=== PATIENT | male | born 1965 | race Caucasian/White ===

== ENCOUNTER 2022-01-19 21:59 | Emergency (ER) | payer BC, SELFPAY ==
--- NOTE | ~2022-01-19 | CT_ITS ---
EXAMINATION: CT abdomen pelvis w con INDICATION: Right lower quadrant pain TECHNIQUE: Computed tomographic images of the abdomen and pelvis were obtained after the administrati on of 100 cc of Omnipaque 350 intravenous contrast. The dose-length product (DLP) was 828.38 mGy-cm. Automated exposure control and iterative reconstruction technique were employed. COMPARISON: 04/20/2012 FINDINGS: Minimal dependent atelectasis is present in the lung bases. The heart size is normal. The l iver, spleen, pancreas, gallbladder, and adrenal glands are normal. Cysts of the right kidney measure up to 12 mm. The left kidney is unremarkable. No pathologically enlarged abdominal or pelvic lymph n odes are identified. There is no free intraperitoneal gas or evidence of bowel obstruction. The appen matt is normal. There is mild wall thickening in the gastric antrum. There is moderate osteoarthritis of the right hip. There are bilateral inguinal hernias containing fat. IMPRESSION: 1. Mild wall thickening of the gastric antrum which could reflect gastritis. Reviewed, dictated and finalized at location A.
[2022-01-19 22:13] VITALS: BP 203/121; PULSE 79; RESP 18; TEMP 36.5; O2SAT 98
[2022-01-19 22:32] LABS: Basophils Absolute Auto 0.1 K/mm3 (0.0-0.1); Basophils Percent Auto 0.5 % (0.2-1.2); Eosinophils Absolute Auto 0.3 K/mm3 (0-0.3); Eosinophils Percent Auto 2.8 % (0-4.4); Hematocrit 44.9 % (42.0-52.0); Immature Granulocyte Absolute 0.03 K/mm3 (0.00-0.031); Immature Granulocyte Percent A 0.3 % (0-0.5); Lymphocytes Absolute Auto 1.41 K/mm3 (0.9-3.2); Lymphocytes Percent Auto 15.2 % (18.3-44.2); Mean Corpuscular HGB Conc 33.4 g/dl (32-36); Mean Corpuscular Hemoglobin 28.7 pg (26-34); Monocytes Percent Auto 10.5 % (2.6-8.5); Neutrophils Absolute Auto 6.6 K/mm3 (1.3-6.7); Neutrophils Percent Auto 70.7 % (45.5-73.1); Platelet Count Result 231 k/mm3 (150-375); Red Blood Count 5.22 M/mm3 (4.6-6.20); Red Cell Distribution Width 12.3 % (11.5-14.5); White Blood Count 9.3 K/mm3 (4.5-10.0)
[2022-01-19 22:42] LABS: Alanine Aminotransferase 26 U/L (4-50); Albumin Level 4.5 g/dL (3.5-5.1); Alkaline Phosphatase 80 U/L (38-126); Anion Gap 10 mmol/L (8-16); Aspartate Amino Transferase 29 U/L (17-59); Bilirubin,Total 0.7 mg/dL (0.2-1.3); Blood Urea Nitrogen 11 mg/dL (9-20); Calcium 8.8 mg/dL (8.4-10.2); Carbon Dioxide 22 mmol/L (22-30); Chloride 105 mmol/L (98-107); Estimated CRCL calculation 93 ml/min; Estimated Glomerular Filt Rate > 60; Glucose 121 mg/dL (65-110); Lipase 43 U/L (23-300); Potassium 4.1 mmol/L (3.4-5.0); Sodium 137 mmol/L (137-145)
[2022-01-20] VITALS (10 sets, daily range): BP systolic 174; BP diastolic 98; PULSE 67; RESP 17; O2SAT 97–99
[2022-01-20] MEDS: SODIUM CHLORIDE 0.9% IV 1,000 ML 999 ML IV CONT (01:12)
[2022-01-20] MEDS: ONDANSETRON INJ 4 MG/2 ML VIAL IV PUSH (01:13)
--- NOTE | 2022-01-20 02:49 | ECG_ITS ---
Measurements Intervals [place] Rate: 63 P: 47 MI: 161 QRS: 10 QRSD: 100 T: 34 QT: 394 QTc: 404 Interpretive Statements SINUS RHYTHM NORMAL ECG NO PREVIOUS ECG AVAILABLE FOR COMPARISON Electronically Signed On 01-20-2022 16:48:24 CDT by Juarez Hernandez M.D.
--- NOTE | 2022-01-20 05:36 | ED.GENADULT ---
HPI - General Adult General Chief complaint: Headache Stated complaint: vomiting, sinus headache Time Seen by Provider: 01/20/22 00:30 History of Present Illness HPI narrative: Patient is a 56-year-old male who presents ER with multiple complaints. Main complaint is he is having abdominal cramping and bloating worsening over the last 2 days. He is having nausea and vomiting associated with this. He reports because of his vomiting has not been able to take his antihypertensives. Patient also reports tension headache that may be developing into known cluster headaches due to his inability to have any caffeine and keep down his medications. No fevers or chills or sweats. No known sick contacts. No thunderclap headache. No numbness or tingling arms or legs. No change in vision. Related Data Allergies Allergy/AdvReac Type Severity Reaction Status Date / Time codeine Allergy Mild Confusion Verified 01/19/22 22:16 Review of Systems Review of Systems: All systems reviewed & are unremarkable except as noted in HPI and below Constitutional: Constitutional: Denies chills, Denies fever(s) and Denies weakness ENT: Denies nasal congestion and Denies sore throat Cardiovascular: Cardiovascular: Denies chest pain, Denies rapid heart rate and Denies radiating jaw, neck or arm pain Respiratory: Respiratory: Denies cough, Denies dyspnea and Denies wheezing Gastrointestinal: Gastrointestinal: Reports abdominal pain, Denies diarrhea, Reports nausea and Reports vomiting Neurologic: Reports headache(s), Denies focal weakness and Denies numbness PMFSH Past Medical History Medical History (Updated 01/20/22 @ 07:42 by Alfredo Olivo MD) Cluster headaches Hypertension Surgical History Surgical History (Updated 01/20/22 @ 07:42 by Alfredo Olivo MD) History of tonsillectomy Exam Narrative: GENERAL: Well-appearing, well-nourished, and in no acute distress. HEAD: Normocephalic, atraumatic. EYES: PERRL and EOMI. ENT: Mucous membranes moist. CHEST: Clear to auscultation. No respiratory distress. HEART: Regular rate and rhythm. Normal peripheral pulses. ABDOMEN: Soft, tender palpation right lower quadrant with guarding, nondistended. EXTREMITIES: Normal range of motion. No edema. SKIN: Warm, dry, no rash. NEURO: Alert and oriented x3. PSYCH: Normal mood and affect. Course Course Emergency Course: Patient feels markedly improved with fluids, Zofran, and IV Tylenol. Informed of results. Discharge home. Vital Signs Vital signs: Vital Signs Temperature 97.7 F 01/19/22 22:13 Pulse Rate 79 01/19/22 22:13 Respiratory Rate 18 01/19/22 22:13 Blood Pressure 203/121 H 01/19/22 22:13 Pulse Oximetry 98 01/19/22 22:13 Temperature 97.7 F 01/19/22 22:13 Pulse Rate 67 01/20/22 05:50 Respiratory Rate 17 01/20/22 05:50 Blood Pressure 174/98 H 01/20/22 05:50 Pulse Oximetry 98 01/20/22 05:50 Medical Decision Making Vital Signs Vital Signs: Vital Signs Temperature 97.7 F 01/19/22 22:13 Pulse Rate 79 01/19/22 22:13 Respiratory Rate 18 01/19/22 22:13 Blood Pressure 203/121 H 01/19/22 22:13 Pulse Oximetry 98 01/19/22 22:13 Temperature 97.7 F 01/19/22 22:13 Pulse Rate 67 01/20/22 05:50 Respiratory Rate 17 01/20/22 05:50 Blood Pressure 174/98 H 01/20/22 05:50 Pulse Oximetry 98 01/20/22 05:50 Lab Data Result diagrams: 01/19/22 22:27 01/19/22 22:27 Labs: Lab Results 01/19/22 01/19/22 Range/Units 22:27 22:27 WBC 9.3 (4.5-10.0) K/mm3 RBC 5.22 (4.6-6.20) M/mm3 Hgb 15.0 (14.0-18.0) g/dL Hct 44.9 (42.0-52.0) % MCV 86.0 (80-100) fl MCH 28.7 (26-34) pg MCHC 33.4 (32-36) g/dl RDW 12.3 (11.5-14.5) % Plt Count 231 (150-375) k/mm3 MPV 9.0 (7.4-10.4) fl Immature Gran % (Auto) 0.3 (0-0.5) % Neut % (Auto) 70.7 (45.5-73.1) % Lymph % (Auto) 15.2 L (18.3-44.2) % [place] % (Auto) 10.5
== END 2022-01-20 05:52 | disposition home or self-care (01) ==
PROVIDERS: Emergency Provider Emergency Medicine; PCP Family Medicine Adolescent Medicine
DX: K52.9 Noninfective gastroenteritis and colitis, unspecified (principal); I10 Essential (primary) hypertension
CPT/HCPCS: 36415; 74177; 80053; 83690; 85025; 93005; 96365; 96375; 99284; J0131; J2405; J7030; Q9967

== ENCOUNTER 2023-06-16 05:53 | Emergency (ER) | payer BC, SELFPAY ==
[2023-06-16] VITALS (10 sets, daily range): BP systolic 183–201; BP diastolic 116–123; PULSE 86–96; RESP 20–27; TEMP 37.6; O2SAT 97–98
[2023-06-16 07:25] LABS: Influenza A QL RT-PCR Negative (Negative); Influenza B QL RT-PCR Negative (Negative); SARS-CoV-2 RNA PCR Positive (Negative)
[2023-06-16] MEDS: SODIUM CHLORIDE 0.9% IV 1,000 ML 999 ML IV CONT (07:59)
--- NOTE | 2023-06-16 08:19 | ED.GENADULT ---
HPI - General Adult General Chief complaint: Upper Respiratory Infection Stated complaint: SOB, cough, sore thorat, fever Time Seen by Provider: 06/16/23 07:02 History of Present Illness HPI narrative: Patient is a 58-year-old male who presents ER with sore throat and fever. Symptoms began yesterday. Associate with cough and mild dyspnea. No chest pain or chest pressure. No known sick contacts. Patient works with [employer] and has been exposed to heat throughout the week. Reports he is mildly constipated. No chest pain or chest pressure. No alleviating factors. Last COVID vaccination was 1 year ago. Related Data Allergies Allergy/AdvReac Type Severity Reaction Status Date / Time codeine Allergy Mild Confusion Verified 06/13/22 15:50 lisinopril AdvReac Unknown Hives Verified 06/13/22 15:50 Review of Systems Constitutional: Constitutional: Reports chills, Reports fatigue and Reports fever(s) ENT: Reports nasal congestion and Reports sore throat Cardiovascular: Cardiovascular: Denies chest pain, Denies rapid heart rate and Denies radiating jaw, neck or arm pain Respiratory: Respiratory: Reports cough, Reports dyspnea and Denies wheezing Gastrointestinal: Gastrointestinal: Denies abdominal pain, Reports constipation, Denies nausea and Denies vomiting PMFSH Past Medical History Medical History (Updated 06/16/23 @ 08:35 by Alfredo Olivo MD) Cluster headaches Hypertension Surgical History Surgical History (Updated 01/20/22 @ 07:42 by Alfredo Olivo MD) History of tonsillectomy Family History Family History (Updated 06/13/22 @ 16:41 by Lauren Bobby, EVERARDO) Other Carcinoma of colon Heart disease Hypertension Melanoma Social History Social History Smoking status: Unknown if ever smoked Exam Narrative: GENERAL: Fatigued-appearing, well-nourished, and in no acute distress. HEAD: Normocephalic, atraumatic. EYES: PERRL and EOMI. ENT: Mucous membranes moist. Mild pharyngeal erythema. Normal uvula that is midline and nonedematous. No tonsillar hypertrophy/exudate. CHEST: Clear to auscultation. No respiratory distress. HEART: Regular rate and rhythm. Normal peripheral pulses. ABDOMEN: Soft, nontender, nondistended. NEURO: Alert and oriented x3. PSYCH: Normal mood and affect. Course Vital Signs Vital signs: Vital Signs Temperature 99.6 F 06/16/23 05:58 Pulse Rate 95 06/16/23 05:58 Respiratory Rate 22 H 06/16/23 05:58 Blood Pressure 201/119 H 06/16/23 05:58 Pulse Oximetry 98 06/16/23 05:58 Oxygen Delivery Room Air 06/16/23 05:58 Temperature 99.6 F 06/16/23 05:58 Pulse Rate 96 06/16/23 06:46 Respiratory Rate 22 H 06/16/23 06:46 Blood Pressure 191/119 H 06/16/23 06:46 Pulse Oximetry 98 06/16/23 05:58 Oxygen Delivery Room Air 06/16/23 05:58 Medical Decision Making MDM Narrative Medical decision making narrative: -Presentation: 58-year-old male presents the ER with sore throat and nasal congestion. -DDX includes but is not limited to: COVID, flu, other viral infection. -Co-morbidities complicating care: Hypertension -Social determinants of health: Employed as a steelworker. -External Chart Review: None -Hx from independent Sources: Patient -Independent interpretation of studies: Patient COVID-positive. Patient with elevated blood pressures. -Discussion of Management/Consultants: none -Dx tests considered but not ordered: none -Procedures: none -Interventions: none -Shared decision making / Disposition: Patient has history of hypertension and has not been taking his Bystolic. Patient given some fluids due to reports of feeling dehydrated and heat exposure. -RX:Paxlovid. Vital Signs Vital Signs: Vital Signs Temperature 99.6 F 06/16/23 05:58 Pulse Rate 95 06/16/23 05:58 Respiratory Rate 22 H 06/16/23 05:58 Blood Pressure 201/119 H 06/16/23 05:58 Pulse Oximetry 98 06/16/23 05:58 O
== END 2023-06-16 08:55 | disposition home or self-care (01) ==
PROVIDERS: Emergency Medicine; Emergency Provider Emergency Medicine; PCP Family Medicine Adolescent Medicine
DX: U07.1 COVID-19 (principal); I10 Essential (primary) hypertension
CPT/HCPCS: 87636; 96360; 99283; J7030

== ENCOUNTER 2024-07-30 11:55 | Emergency (ER) | payer BC, SELFPAY ==
--- NOTE | ~2024-07-30 | XR_ITS ---
XR chest 1V portable Ordering provider: Augustin Maurice MD History: 59 years Male with . Right side chest pain, ALLERGIC REACTION TO BP MEDS . Comparison: November 10, 2010 FINDINGS: MEDIASTINUM: The cardiac silhouette is not enlarged. LUNGS: No infiltrates, effusions or pneumothorax. OTHER: No free air under the diaphragm. Degenerative spine. IMPRESSION: No acute cardiopulmonary pathology. Reviewed, dictated and finalized at location A.
[2024-07-30 11:59] VITALS: BP 179/104; PULSE 61; RESP 17; TEMP 36.5; O2SAT 99
--- NOTE | 2024-07-30 12:04 | ECG_ITS ---
Test Date: 2024-07-30 12:05:23 Measurements Intervals [place] Rate: 56 P: 32 CA: 174 QRS: 12 QRSD: 95 T: 35 QT: 406 QTc: 393 Interpretive Statements SINUS BRADYCARDIA OTHERWISE NORMAL ELECTROCARDIOGRAM No previous ECG available for comparison Electronically Signed On 07-30-2024 16:08:29 CDT by Leonel Horowitz M.D.
[2024-07-30] MEDS: FAMOTIDINE 20 MG/2 ML VIAL 40 MG IV PUSH (12:11)
[2024-07-30] MEDS: diphenhydrAMINE HCl INJ 50 MG/ML VIAL IV PUSH (12:12)
[2024-07-30] MEDS: methylPREDNISolone SOD SUCC 125 MG VIAL IV PUSH (12:12)
[2024-07-30 12:37] LABS: Troponin I < 0.012 ng/mL (0.000-0.034)
[2024-07-30 12:48] VITALS: BP 141/93; PULSE 57; RESP 17; O2SAT 98
--- NOTE | 2024-07-30 12:53 | ED.ALLEREA ---
HPI - Allergic Reaction General Chief complaint: Allergic Reaction Stated complaint: allergic reaction Time Seen by Provider: 07/30/24 11:57 Source: patient Mode of arrival: ambulatory Limitations: no limitations History of Present Illness HPI narrative: This is a 59-year-old male, with history of angioedema reaction to lisinopril, who presents to the emergency department with concern for allergic reaction to amlodipine. The patient states he has been taking Amlodipine for the past 9 days. He woke up today and noticed hives on the arms, face and abdomen. He denies difficulty breathing, persistent vomiting, diarrhea or loss of consciousness. He also complains of a globus like sensation on the right side of the chest without radiation. He denies any known aggravating or alleviating factors. He has no other complaints at this time. Related Data Allergies Allergy/AdvReac Type Severity Reaction Status Date / Time amlodipine Allergy Intermediate Chest Pain Verified 07/30/24 11:43 codeine Allergy Mild Confusion Verified 07/29/24 09:22 lisinopril AdvReac Severe Swelling Verified 07/29/24 09:22 of Lip/Tongue/Throat Review of Systems Review of Systems: All systems reviewed & are unremarkable except as noted in HPI and below PMFSH Past Medical History Medical History Cluster headaches COVID Hypertension Surgical History Surgical History History of tonsillectomy Family History Family History Other Carcinoma of colon Heart disease Hypertension Melanoma Social History Social History Smoking status: Never smoker Exam Narrative: GENERAL: Well-developed, well-nourished, and in no acute distress. HEAD: Normocephalic, atraumatic. EYES: PERRLA and EOMI. ENT: Nares clear, no rhinorrhea or epistaxis. Mucous membranes moist. Oropharynx without tonsillar hypertrophy exudate or other lesions. NECK: Supple. No stridor CHEST: Clear to auscultation. No respiratory distress. No wheezes rales or rhonchi HEART: Regular rate and rhythm. No murmur heard. Normal peripheral pulses. ABDOMEN: Soft, nontender, nondistended, normal active bowel sounds. EXTREMITIES: Normal range of motion. No edema. SKIN: there are scattered urticaria of the bilateral upper arms, abdomen and bilateral lower legs. Skin otherwise warm, dry, no rash. NEURO: Alert and oriented x3. No focal deficit. Moving all 4 limbs spontaneously PSYCH: Normal mood and affect. Course Course Emergency Course: 13:40 - On re-evaluation approximately 1 hour and 40 minutes after IV Pepcid and Benadryl administration, the patient's urticaria has resolved and he feels significantly improved. He denies chest pain. Troponin negative. EKG not concerning for ischemia. Chest x-ray unremarkable. Will discharge with a course of steroids and antihistamines. I discussed the findings and recommendations with the patient. Discussed return and emergency precautions including signs/symptoms of anaphylaxis and ACS. The patient voiced understanding and agreement with the plan. All questions answered to his satisfaction. Vital Signs Vital signs: Vital Signs Temperature 97.7 F 07/30/24 11:59 Pulse Rate 61 07/30/24 11:59 Respiratory Rate 17 07/30/24 11:59 Blood Pressure 179/104 H 07/30/24 11:59 Pulse Oximetry 99 07/30/24 11:59 Oxygen Delivery Room Air 07/30/24 11:59 Temperature 97.7 F 07/30/24 11:59 Pulse Rate 57 L 07/30/24 12:48 Respiratory Rate 17 07/30/24 12:48 Blood Pressure 141/93 H 07/30/24 12:48 Pulse Oximetry 98 07/30/24 12:48 Oxygen Delivery Room Air 07/30/24 12:08 MDM - Allergic Reaction MDM Narrative Medical decision making narrative: plan: IV steroids, antihistamines, EKG, imaging, an
[2024-07-30 14:00] VITALS: BP 141/95; PULSE 63; RESP 19; O2SAT 97
== END 2024-07-30 14:01 | disposition home or self-care (01) ==
PROVIDERS: Emergency Provider Preventive Medicine Aerospace Medicine; PCP Family Medicine Adolescent Medicine
DX: L50.0 Allergic urticaria (principal); I10 Essential (primary) hypertension; Z86.16 Personal history of COVID-19; R00.1 Bradycardia, unspecified
CPT/HCPCS: 36415; 71045; 84484; 93005; 96374; 96375; 99284; J1200; J2919; J7512

== ENCOUNTER 2024-10-07 08:22 | Emergency (ER) | payer BC, SELFPAY ==
[2024-10-07 08:27] VITALS: BP 226/130; PULSE 80; RESP 18; TEMP 36.5; O2SAT 100
--- NOTE | 2024-10-07 08:41 | ED_ITS ---
HPI - Eye Problem General Chief complaint: Eye Problems Stated complaint: left eye Time Seen by Provider: 10/07/24 08:32 Source: patient and RN notes reviewed Mode of arrival: ambulatory Limitations: no limitations History of Present Illness HPI Narrative: 59-year-old male presents with concern of for left upper eyelid pain and irritation. Reports 2-3 days of symptoms. Reports he had mild amount of yellow drainage. He denies vision changes. He denies pain. He denies intervention. Patient also reports he stopped taking his antihypertensive because he ?wanted to see where he was with his blood pressure?. chief complaint: eye redness Related Data Allergies Allergy/AdvReac Type Severity Reaction Status Date / Time amlodipine Allergy Intermediate Chest Pain Verified 10/07/24 08:36 codeine Allergy Mild Confusion Verified 10/07/24 08:36 lisinopril AdvReac Severe Swelling Verified 10/07/24 08:36 of Lip/Tongue/Throat Review of Systems Review of Systems: CONSTITUTIONAL: Denies malaise, chills, sweats, or fever. EYES: Denies visual changes. Reports redness, irritation, discharge the left eye. ENT: Denies rhinorrhea, congestion, sinus pain, otalgia or sore throat. SKIN: Denies rash or itching. NEUROLOGIC: Denies numbness, weakness, or headache. PSYCHIATRIC: Denies anxiety or depression. All systems reviewed & are unremarkable except as noted in HPI and below PMFSH Past Medical History Medical History Cluster headaches COVID Hypertension Surgical History Surgical History History of tonsillectomy Family History Family History Other Carcinoma of colon Heart disease Hypertension Melanoma Social History Social History Smoking status: Never smoker Comments At time of signature, agree with nursing past medical, surgical, social and family history. There is no relevant family history pertinent to the presenting complaint Exam Narrative: GENERAL: Well-appearing, well-nourished, and in no acute distress. HEAD: Normocephalic, atraumatic. EYES: PERRLA, sclera clear, and EOMI. No nystagmus. Bilateral conjunctivae clear. Right Upper and lower eyelid unremarkable, no periorbital edema noted. Mild erythema and hordeolum noted to the left upper eyelid ENT: Nares clear, turbinates pink, no rhinorrhea or epistaxis. Mucous membranes moist. TM pearly rosen with sharp light reflex bilaterally; no tragal tenderness. NECK: Supple. CHEST: No respiratory distress. Speaks in full sentences. HEART: Regular rate and rhythm. SKIN: Warm, dry, no visible rash. NEURO: Alert and oriented x3. PSYCH: Normal mood and affect Course Course Emergency Course: Patient is aware of diagnosis, understands and agrees to treatment plan. Anticipatory guidance given. Patient agrees to follow-up as directed and is aware of reasons to seek care at the emergency department. Portions of this record may have been created with voice recognition software Level of Care: Express Care Visit Vital Signs Vital signs: Reviewed. MDM - Eye Problem MDM Narrative Medical decision making narrative: Consideration of the following conditions may be warranted for the presenting problem, they are not final diagnoses: Bacterial conjunctivitis, allergic conjunctivitis, viral conjunctivitis, foreign body, blepharitis, chalazion, hordeolum, corneal abrasion, preseptal cellulitis, orbital cellulitis. No evidence of proptosis, ophthalmoplegia, vision loss, pain with eye movement. Exam findings show no acute concerns or changes; patient is non-toxic appearing and is in no distress. Patient is appropriate for outpatient treatment and follow-up. Critical Care Time Critical Care Time Critical Care Time: No Discharge Plan Discharge Clinical Impression: Hordeolum Patient Disposition: Home, Self-Care Condition: Stable Instructions: Demetrio (ED) Additional Instructions: Do not touch or rub your eye. Use a warm washcloth on your eye frequently throughout the day Use eyedrops as directed Practice good handwashing You may take Tylenol or ibuprofen for pain Follow-up with PCP or process supervisor if condition is not improving in 2-3days. Go to the emergency room if you have pain behind your eye, pressure behind your eye, difficulty seeing, or other severe symptoms Your blood pressure is high, please go home and take your prescribed antihypertensive medication and please follow-up with your doctor as soon as possible. Continue to check blood pressure at home and that remains is high you need to go to the emergency room Patient Language: [place] Prescriptions: New polymyxin B sulf-trimethoprim 10,000 unit- 1 mg/mL drops 1 drp LEFT EYE Q3H 7 Days Qty: 10 0RF Rx Instructions: while awake; do not exceed 6 doses in 24 hours No Action nebivolol 20 mg tablet 40 mg PO DAILY Qty: 180 3RF chlorthalidone 25 mg tablet 25 mg PO DAILY Qty: 90 0RF famotidine 40 mg tablet 40 mg PO BID 4 Days Qty: 8 0RF diphenhydramine HCl 50 mg capsule 50 mg PO Q12H 4 Days Qty: 8 0RF prednisone 20 mg tablet 20 mg PO DAILY 4 Days Qty: 4 0RF Follow-up/Referrals: Solomon Hays MD [Primary Care Provider] - Stand Alone Forms: Work/School Release IP Time of Disposition: 08:51
== END 2024-10-07 08:57 | disposition home or self-care (01) ==
PROVIDERS: Emergency Provider Nurse Practitioner; PCP Family Medicine Adolescent Medicine
DX: H00.014 Hordeolum externum left upper eyelid (principal); I10 Essential (primary) hypertension
CPT/HCPCS: 99213; G0463